=== PATIENT | male | born 1985 | race Caucasian/White ===

== ENCOUNTER 2020-07-04 08:55 | Emergency (ER) | payer OTHER ==
[~2020-07-04] VITALS: Ht 172.7 cm; Wt 81.7 kg
[2020-07-04] MEDS ORDERED: TYLENOL325 M1 PO (09:10)
[2020-07-04] MEDS ORDERED: IBU400 MG PO (09:10)
[2020-07-04] MEDS ORDERED: FLEXERIL PO (10:14)
[2020-07-04 10:22] VITALS: BP 132/72
== END 2020-07-04 10:23 | disposition home or self-care (01) ==
LOC: M.ERS 08:55
DX: S60.511A Abrasion of right hand, initial encounter (principal); W23.0XXA Caught, crushed, jammed, or pinched between moving objects, initial encounter; G89.29 Other chronic pain; Z88.6 Allergy status to analgesic agent; Y93.89 Activity, other specified; Y92.89 Other specified places as the place of occurrence of the external cause; Y99.8 Other external cause status

== ENCOUNTER 2020-08-29 15:41 | Emergency (ER) | payer OTHER ==
[~2020-08-29] VITALS: Ht 172.7 cm; Wt 81.7 kg
[~2020-08-29 15:41] MED LIST: FLEXERIL PO; IBU400 MG PO; TYLENOL325 M1 PO
[2020-08-29 16:25] LABS: ABSOLUTE BASOPHILS 0.1 thou/uL (0.0-0.2); ABSOLUTE LYMPHOCYTES 1.3 thou/uL (0.8-5.3); ABSOLUTE MONOCYTES 1.2 thou/uL (0.0-1.2); ABSOLUTE NEUTROPHILS 12.3 thou/uL (1.6-8.1); BASOPHILS 0.4 %; HEMATOCRIT 40.9 % (42.0-52.0); LYMPHOCYTES 8.6 %; MCH 29.2 pg (26.0-34.0); MCHC 34.3 g/dL (28.0-37.0); MCV 85.3 fL (80.0-100.0); MONOCYTES 8.2 %; MPV 9.2 fl. (7.2-11.1); NUCLEATED RBCS 0 /100WBC; PLATELET COUNT* 183 thou/uL (150-400); POLYS 82.8 %; RDW-CV 12.6 % (10.5-14.5); WBC 14.8 thou/uL (4.0-11.0)
[2020-08-29 16:33] LABS: CALCIUM 8.8 mg/dL (8.5-10.1); POTASSIUM 3.5 mmol/L (3.5-5.1)
[2020-08-29 16:38] LABS: TOTAL BILIRUBIN 0.8 mg/dL (<0.1-1.0); TOTAL PROTEIN 7.6 g/dL (6.4-8.2)
[2020-08-29 17:47] LABS: URINE BILIRUBIN NEGATIVE (Negative); URINE BLOOD NEGATIVE (Negative); URINE CLARITY CLEAR; URINE COLOR YELLOW; URINE GLUCOSE-RANDOM NEGATIVE (Negative); URINE KETONES 1+ (Negative); URINE LEUKOCYTES-REFLEX NEGATIVE (Negative); URINE NITRITE-REFLEX NEGATIVE (Negative); URINE PROTEIN NEGATIVE (Negative)
[2020-08-29] MEDS ORDERED: DOXYCYCLINE 10100 M2 PO (18:02)
[2020-08-29] MEDS ORDERED: VENTOLIN HFA 1818 GM INH (18:32)
[2020-08-29 18:34] VITALS: BP 120/62
--- NOTE | 2020-08-30 14:12 | EKG ---
[place] [address] ELECTROCARDIOGRAM REPORT Name: AMBER BIRD Room: [facility]#: [id number] Admission: 08/29/20 Attend Phys: Discharge: 08/29/20 Date of : 89 Date of Service: 08/29/20 1619 Report #: [id number] THIS REPORT FOR: //name// [facility] ED Test Date: 2020-08-29 Test Time: 16:19:39 Pat Name: AMBER BIRD Department: Room: Gender: [employer]: : [id number] Requested By: Jeremias Bucio Order Number: [id number] MD: Remy Orozco Measurements Intervals [place] Rate: 92 P: 39 WI: 135 QRS: -32 QRSD: 100 T: 42 QT: 345 QTc: 427 Interpretive Statements Sinus rhythm Left axis deviation ST elev, probable normal early repol pattern No previous ECG available for comparison Electronically Signed On 08-30-2020 14:12:38 CDT by Remy Orozco [email or web address] <ELECTRONICALLY SIGNED> By: Remy Orozco MD, [facility] 08/30/20 1412 1619 1619 Remy Orozco MD, FAC /EPI
== END 2020-08-29 18:35 | disposition home or self-care (01) ==
LOC: M.ERS 15:41
PROVIDERS: Emergency Medicine Emergency Medical Services
DX: J18.9 Pneumonia, unspecified organism (principal); G89.29 Other chronic pain; F17.210 Nicotine dependence, cigarettes, uncomplicated; Z88.6 Allergy status to analgesic agent